=== PATIENT | female | born 1955 | race Caucasian/White ===

== ENCOUNTER 2017-04-08 20:07 | Observation (INO) ==
--- NOTE | 2017-04-08 21:03 | Emergency Department Note ---
Disposition Clinical Impression: UTI (urinary tract infection), Gastroenteritis, Dehydration Disposition: Admitted As Inpatient Condition: Good Time of Disposition: 23:22 ([facility]) Nausea/Vomiting/Diarrhea HPI - General Chief complaint: ED Nausea/Vomiting/Diarrhea Stated complaint: V/N/D for 10 days Time Seen by Provider: 04/08/17 20:15 Source: patient, family Mode of arrival: ambulatory Limitations: no limitations Nursing Notes Reviewed: Yes Vital Signs Reviewed: Yes - History of Present Illness HPI Narrative: 10 day history of nausea vomiting and diarrhea intermittently occurring has it for 1 day will be better than it recur she has seen her family physician who told her it sounds like it is gastroenteritis that should last 7-10 days that was 3 days ago she denies a fever chills she had blood work done states that she did not receive a call that was abnormal patient states that she is having heavy cramping she denies any blurred vision double vision neck pain neck stiffness is having nausea vomiting diarrhea but that is more like a sludgy- type stool she has had abdominal surgery but has never had a history of obstruction she denies any vaginal discharge difficulty urinating she denies any rashes or lesions she did start a new medication Imuran is not sure if this may be the source for it as result she is here she is also complaining of dysuria at this time when she goes to the bathroom here at the hospital No other family members ill Pt Subjective Complaint: nausea, vomiting, diarrhea Onset (ago): week(s) (1.5) Description of emesis: food contents Description of Diarrhea: water Associated Abdominal Pain: Yes If pain, Location of pain: diffuse Severity: moderate Severity scale (1-10): 4 Quality: cramping Consistency: intermittent Improves with: nothing Worsens with: nonthing Context: other (new medication imuran) Associated symptoms: Reports: headaches, loss of appetite, nausea/vomiting. Denies: myalgias, chest pain, cough, diaphoresis, fever/chills, malaise, dysuria , shortness of breath, syncope, weakness - Related Data Home Medications Medication Instructions Recorded Confirmed Fesoterodine Fumarate [Toviaz] 4 mg PO DAILY 03/22/15 04/08/17 Gabapentin [Neurontin] 600 mg PO HS 03/22/15 04/08/17 Trazodone HCl [TraZODone] 100 mg PO HS 03/22/15 04/08/17 rOPINIRole [Requip] 1 mg PO TID 03/22/15 04/08/17 Levothyroxine [Synthroid] 25 mcg PO DAILY 06/05/15 04/08/17 Bupropion HCl [Wellbutrin Xl] 300 mg PO QAM 03/17/16 04/08/17 metFORMIN [Glucophage] 500 mg PO BID 05/31/16 04/08/17 Carbidopa/Levodopa 1 tab PO HS 08/21/16 04/08/17 [Carbidopa-Levodopa 25-100 Tab] Celecoxib 400 mg PO DAILY 08/21/16 04/08/17 Esomeprazole Magnesium 40 mg PO DAILY 08/21/16 04/08/17 Rosuvastatin Calcium 10 mg PO DAILY 08/21/16 04/08/17 DULoxetine [Cymbalta] 30 mg PO BID 04/08/17 04/08/17 HYDROcodone/Acet 10/325 mg [[place] 1 tab PO BID PRN 04/08/17 04/08/17 10-325 mg] Linaclotide [Linzess] 145 mcg PO DAILY 04/08/17 04/08/17 Montelukast [Singulair] 10 mg PO HS 04/08/17 04/08/17 Ondansetron HCl [Zofran] 4 mg PO Q8H PRN 04/08/17 04/08/17 Phenazopyridine HCl [Pyridium] 200 mg PO TIDAC 04/08/17 04/08/17 diazePAM [Valium] 2 mg PO DAILY 04/08/17 04/08/17 Allergies Allergy/AdvReac Type Severity Reaction Status Date / Time leflunomide Allergy Rash Verified 04/08/17 20:33 Hydromorphone [From Dilaudid] AdvReac See Verified 04/08/17 20:33 Comments levofloxacin [From Levaquin] AdvReac Muscle Pain Verified 04/08/17 20:33 nitrofurantoin AdvReac Nausea Verified 04/08/17 20:33 [From Macrobid] All systems ED: reviewed and negative except as stated. Review of Systems: As Per HPI Constitutional: Denies: fever, chills, weakness Eyes: Denies: eye pain, eye discharge ENT ED: Denies: ear pain Cardiovascular: Denies: chest pain Respiratory: Denies: cough, dyspnea Gastrointestinal: Reports: abdominal pain, nausea, vomiting, diarrhea Genitourinary: Reports: urgency, frequency. Denies: dysuria Musculoskeletal: Denies: back pain Integumentary: Denies: rash, abrasion Neurological: Denies: headache Psychiatric: Denies: anxiety Endocrine: Denies: fatigue Hematological/Lymphatic: Denies: easy bleeding Allergic/Immunologic: Denies: facial swelling Past Medical History - Past Medical History Attestation: Yes The following information was validated with the patient. Source: patient, old records reviewed, nursing notes reviewed Medical history: Reports: diabetes, fibromyalgia, hyperlipidemia, hypertension, RA, thyroid disease Surgical history: Reports: cholecystectomy, hysterectomy Psychiatric history: Reports: anxiety, depression CODING TECH history: Reports: non-contributory - Social History Smoking Status: Former smoker Smokeless Tobacco Status: No Alcohol use: Reports: none Drug use: Reports: none Physical Exam - General Limitations: no limitations General appearance: alert, in no apparent distress, anxious - Head Head exam: atraumatic, normocephalic, normal inspection - Eye Eye exam: Present: normal appearance, PERRL, EOMI - ENT ENT exam: normal exam, normal oropharynx, mucous membranes moist, normal external ear exam - Neck Neck exam: Present: normal inspection, full ROM, trachea midline - Chest Chest inspection: Present: normal inspection, symmetric chest wall rise - Respiratory Respiratory exam: Present: normal lung sounds bilaterally - Cardiovascular Cardiovascular exam: Present: regular rate, normal rhythm, normal heart sounds - Abdominal Exam Abdominal exam: Present: soft, tenderness, distention, hyperactive bowel sounds. Absent: mass, pulsatile mass - Extremities Exam Extremities exam: Present: normal inspection, full ROM, normal capillary refill. Absent: tenderness, pedal edema, joint swelling, calf tenderness - Expanded Lower Extremity Exam Neurovascular/Tendon exam: Present: normal capillary refill, normal fine/light touch Gait: observed and normal - Back Exam Back exam: Present: normal inspection, full ROM. Absent: muscle spasm - Neurological Exam Neurological exam: Present: alert, oriented X3, CN II-XII intact - Psychiatric Psychiatric exam: Present: normal affect, normal mood - Skin Skin exam: Present: warm, dry, intact, normal color Course Course Narrative: 62-year-old female with nausea vomiting diarrhea she is alert she is up she has had no diarrhea episodes while here in the emergency room she has urinated without difficulty patient though appears to be somewhat uncomfortable she is given an antirheumatic the patient was then given IV fluids with the results of the urine is admitted her overnight to make sure that she was not developing any other etiology discharged home stable condition Vital Signs Temperature 96.8 F L 04/08/17 20:08 Pulse Rate 106 04/08/17 20:08 Respiratory Rate 18 04/08/17 20:08 Blood Pressure 121/66 04/08/17 20:08 O2 Sat by Pulse Oximetry 97 04/08/17 20:08 Temperature 97.7 F 04/10/17 06:44 Pulse Rate 67 04/10/17 06:44 Respiratory Rate 18 04/10/17 06:44 Blood Pressure 79/44 04/10/17 06:44 O2 Sat by Pulse Oximetry 95 04/10/17 06:44 Oxygen Delivery Oxygen Delivery Room Air Nausea/Vomiting/Diarrhea - Differential Diagnosis Likely: traveler's diarrhea, gastroenteritis, clostridium difficile infection, drug-induced nausea and vomitting, dehydration - Medical Records Medical records reviewed: Yes I reviewed the patient's medical records. - Lab Data Lab results reviewed: Yes I reviewed the patient's lab results. Result diagrams: 04/10/17 06:11 04/10/17 06:11 Lab Results 04/08/17 04/08/17 04/08/17 Range/Units 21:00 21:15 21:15 WBC 11.6 H (4.3-11.1) K/mcL RBC 4.63 (3.82-4.97) M/mcL Hgb 14.4 D (11.5-15.4) g/dL Hct 42.8 (35.3-44.9) % MCV 92.4 (83.0-100.0) fL MCH 31.1 (28.0-33.3) pg MCHC 33.6 (31.6-35.5) g/dL RDW 12.8 (11.5-14.5) % Plt Count 248 (140-400) K/mcL MPV 9.8 (9.4-12.4) fL Immature Gran % 0.3 (0-4) % Seg Neutrophils % 72.0 % Lymphocytes % 19.4 % Monocytes % 7.4 % Eosinophils % 0.6 % Basophils % 0.3 % Neutrophils # 8.4 (1.6-8.9) K/mcL Lymphocytes # 2.3 (0.6-4.6) K/mcL Monocytes # 0.9 (0.0-1.3) K/mcL Eosinophils # 0.1 (0.0-0.6) K/mcL Basophils # 0.0 (0.0-0.2) K/mcL PT 12.1 (9.4-12.1) Seconds INR 1.1 APTT 31.3 (26.0-36.0) Seconds Sodium (136-145) mEq/L Potassium (3.5-4.5) mEq/L Chloride (98-109) mEq/L Carbon Dioxide (19-29) mEq/L BUN (7-20) mg/dL Creatinine (0.57-1.11) mg/dL Est GFR ( Amer) (> 60) Est GFR (Non-Af Amer) (> 60) BUN/Creatinine Ratio (6-26) Glucose (70-99) mg/dL Calculated Osmolality (280-300) Calcium (8.6-10.8) mg/dL Total Bilirubin (0.2-1.2) mg/dL AST (5-34) Units/L ALT (0-55) Units/L Alkaline Phosphatase (38-126) Units/L Serum Total Protein (6.0-8.3) g/dL Albumin (3.5-5.0) g/dL Globulin (2.4-3.5) g/dL Albumin/Globulin Ratio (1.1-2.2) Lipase (8-78) Units/L Urine Color Yellow (Yellow) Urine Clarity Clear (Clear) Urine pH 5.5 (5.0-8.0) pH Units Ur Specific [place] >= 1.030 H (1.010-1.025) Urine Protein Trace (Neg-Trace) mg/dL Urine Glucose (UA) 100 H (Normal) mg/dL Urine Ketones Negative (Negative) mg/dL Urine Blood Small H (Negative) Urine Nitrite Positive A (Negative) Urine Bilirubin Negative (Negative) Urine Urobilinogen Normal (Normal) mg/dL Ur Leukocyte Esterase Trace H (Negative) Urine Microscopic RBC 5-15 H (0-3) per hpf Urine Microscopic WBC Test Not Performed Ur Squamous Epith Cells Few (None-Few) per lpf Urine Mucus Moderate H (Few) Ur Culture Indicated? YES A (NO) 04/08/17 Range/Units 21:15 WBC (4.3-11.1) K/mcL RBC (3.82-4.97) M/mcL Hgb (11.5-15.4) g/dL Hct (35.3-44.9) % MCV (83.0-100.0) fL MCH (28.0-33.3) pg MCHC (31.6-35.5) g/dL RDW (11.5-14.5) % Plt Count (140-400) K/mcL MPV (9.4-12.4) fL Immature Gran % (0-4) % Seg Neutrophils % % Lymphocytes % % Monocytes % % Eosinophils % % Basophils % % Neutrophils # (1.6-8.9) K/mcL Lymphocytes # (0.6-4.6) K/mcL Monocytes # (0.0-1.3) K/mcL Eosinophils # (0.0-0.6) K/mcL Basophils # (0.0-0.2) K/mcL PT (9.4-12.1) Seconds INR APTT (26.0-36.0) Seconds Sodium 143 (136-145) mEq/L Potassium 3.6 (3.5-4.5) mEq/L Chloride 104 (98-109) mEq/L Carbon Dioxide 26 (19-29) mEq/L BUN 20 (7-20) mg/dL Creatinine 0.77 (0.57-1.11) mg/dL Est GFR ( Amer) > 60 (> 60) Est GFR (Non-Af Amer) > 60 (> 60) BUN/Creatinine Ratio 26 (6-26) Glucose 112 H (70-99) mg/dL Calculated Osmolality 299 (280-300) Calcium 9.2 D (8.6-10.8) mg/dL Total Bilirubin 0.2 (0.2-1.2) mg/dL AST 22 (5-34) Units/L ALT 36 (0-55) Units/L Alkaline Phosphatase 76 (38-126) Units/L Serum Total Protein 6.5 (6.0-8.3) g/dL Albumin 3.6 (3.5-5.0) g/dL Globulin 2.9 (2.4-3.5) g/dL Albumin/Globulin Ratio 1.2 (1.1-2.2) Lipase 36 (8-78) Units/L Urine Color (Yellow) Urine Clarity (Clear) Urine pH (5.0-8.0) pH Units Ur Specific [place] (1.010-1.025) Urine Protein (Neg-Trace) mg/dL Urine Glucose (UA) (Normal) mg/dL Urine Ketones (Negative) mg/dL Urine Blood (Negative) Urine Nitrite (Negative) Urine Bilirubin (Negative) Urine Urobilinogen (Normal) mg/dL Ur Leukocyte Esterase (Negative) Urine Microscopic RBC (0-3) per hpf Urine Microscopic WBC Ur Squamous Epith Cells (None-Few) per lpf Urine Mucus (Few) Ur Culture Indicated? (NO) - Radiology Data Radiology results reviewed: Yes I reviewed the patient's radiology results. ITS Impressions Abdomen/Pelvis CT 04/08/17 21:03 IMPRESSION: No acute process D/ / Min Miller MD / Min Miller MD Interpreting Provider: Min Miller MD - EKG Data EKG attestation: Yes I reviewed and interpreted this EKG. EKG results narrative: Sinus rhythm with right ventricular conduction delay rate 95 ID 158. 99 QT 356 excess -8 Critical Care Time Critical Care Time: No
[2017-04-08 21:07] LABS: Bilirubin,Urine Negative (Negative); Blood,Urine Small (Negative); Clarity,Urine Clear (Clear); Color,Urine Yellow (Yellow); Glucose,Urine (UA) 100 mg/dL (Normal); Ketones,Urine Negative (Negative); Leukocyte Esterase,Urine Trace (Negative); Nitrite,Urine Positive (Negative); PH,Urine 5.5 pH Units (5.0-8.0); Protein,Urine Trace mg/dL (Neg-Trace); Specific Gravity,Urine >= 1.030 (1.010-1.025); Urobilinogen,Urine Normal (Normal)
[2017-04-08 21:13] LABS: Mucus,Urine Moderate (Few); Squamous Epithelial Cell,Urine Few per lpf (None-Few)
[2017-04-08 21:21] LABS: Basophils % 0.3 %; Eosinophils # 0.1 K/mcL (0.0-0.6); Eosinophils % 0.6 %; Hematocrit 42.8 % (35.3-44.9); Hemoglobin 14.4 g/dL (11.5-15.4); Immature Granulocytes % 0.3 % (0-4); Lymphocytes # 2.3 K/mcL (0.6-4.6); Lymphocytes % 19.4 %; Mean Corpuscular HGB Conc 33.6 g/dL (31.6-35.5); Mean Corpuscular Hemoglobin 31.1 pg (28.0-33.3); Mean Corpuscular Volume 92.4 fL (83.0-100.0); Mean Platelet Volume 9.8 fL (9.4-12.4); Monocytes # 0.9 K/mcL (0.0-1.3); Monocytes % 7.4 %; Neutrophils # 8.4 K/mcL (1.6-8.9); Platelet Count 248 K/mcL (140-400); Red Blood Count 4.63 M/mcL (3.82-4.97); Red Cell Distribution Width 12.8 % (11.5-14.5)
[2017-04-08 21:26] LABS: INR 1.1; Prothrombin Time 12.1 Seconds (9.4-12.1)
[2017-04-08 21:29] LABS: Activated Partial Thrombo Time 31.3 Seconds (26.0-36.0)
[2017-04-08 21:39] LABS: Alanine Aminotransferase 36 Units/L (0-55); Albumin 3.6 g/dL (3.5-5.0); Albumin/Globulin Ratio 1.2 (1.1-2.2); Alkaline Phosphatase 76 Units/L (38-126); Aspartate Amino Transferase 22 Units/L (5-34); BUN/Creatinine Ratio 26 (6-26); Bilirubin,Total 0.2 mg/dL (0.2-1.2); Blood Urea Nitrogen 20 mg/dL (7-20); Calcium 9.2 mg/dL (8.6-10.8); Carbon Dioxide 26 mEq/L (19-29); Chloride 104 mEq/L (98-109); Globulin 2.9 g/dL (2.4-3.5); Glucose 112 mg/dL (70-99); Lipase 36 Units/L (8-78); Osmolality,Calculated 299 (280-300); Potassium 3.6 mEq/L (3.5-4.5); Sodium 143 mEq/L (136-145); Total Protein 6.5 g/dL (6.0-8.3); eGFR For African Americans > 60 (> 60); eGFR For Non-African Americans > 60 (> 60)
[2017-04-08] MEDS ORDERED: MetroNIDAZOLE 500 MG/100 ML 500 MG/100 ML BAG IVPB ONE (21:39)
[2017-04-08] MEDS ORDERED: 0.9 % Sodium Chloride 1,000 ML IVC ONE (21:44)
[2017-04-08] MEDS ORDERED: Ondansetron 4 MG/2 ML VIAL IVP ONE (23:14)
[2017-04-08] MEDS ORDERED: *HR* HYDROcodone/Acet 10/325 mg TABLET PO PRN (23:31)
[2017-04-08] MEDS ORDERED: *HR* Dextrose 50 % in Water (Syg) 50 ML SYRINGE IVP PRN (23:31)
[2017-04-08] MEDS ORDERED: Dextrose Gel 15 GM PO PRN ×2 (23:31)
[2017-04-08] MEDS ORDERED: Ondansetron 4 MG/2 ML VIAL IVP PRN (23:31)
[2017-04-08] MEDS ORDERED: D5% in Water 1,000 ML IVC PRN (23:31)
[2017-04-08] MEDS ORDERED: Naloxone 0.4 MG/ML INJ IVP PRN (23:31)
[2017-04-09] MEDS: Gabapentin 300 MG CAPSULE PO SCH ×2 (00:31→20:43)
[2017-04-09] MEDS: traZODone 50 MG TABLET PO SCH ×2 (00:31→20:44)
[2017-04-09] MEDS: rOPINIRole 1 MG TABLET PO SCH ×4 (00:31→20:43)
[2017-04-09 06:14] LABS: Basophils % 0.4 %; Eosinophils # 0.1 K/mcL (0.0-0.6); Eosinophils % 1.1 %; Hematocrit 37.8 % (35.3-44.9); Hemoglobin 12.6 g/dL (11.5-15.4); Immature Granulocytes % 0.4 % (0-4); Lymphocytes # 1.6 K/mcL (0.6-4.6); Lymphocytes % 18.7 %; Mean Corpuscular HGB Conc 33.3 g/dL (31.6-35.5); Mean Corpuscular Volume 93.1 fL (83.0-100.0); Mean Platelet Volume 10.3 fL (9.4-12.4); Monocytes # 0.6 K/mcL (0.0-1.3); Monocytes % 7.4 %; Neutrophils # 6.1 K/mcL (1.6-8.9); Platelet Count 220 K/mcL (140-400); Red Blood Count 4.06 M/mcL (3.82-4.97); Red Cell Distribution Width 12.7 % (11.5-14.5)
[2017-04-09] MEDS: Levothyroxine 25 MCG TABLET PO SCH (06:27)
[2017-04-09 06:38] LABS: INR 1.1; Prothrombin Time 12.3 Seconds (9.4-12.1)
[2017-04-09 06:41] LABS: Activated Partial Thrombo Time 29.1 Seconds (26.0-36.0)
[2017-04-09 07:09] LABS: BUN/Creatinine Ratio 21 (6-26); Blood Urea Nitrogen 15 mg/dL (7-20); Calcium 8.6 mg/dL (8.6-10.8); Carbon Dioxide 26 mEq/L (19-29); Chloride 107 mEq/L (98-109); Glucose 112 mg/dL (70-99); Osmolality,Calculated 300 (280-300); Potassium 3.2 mEq/L (3.5-4.5); Sodium 144 mEq/L (136-145); eGFR For African Americans > 60 (> 60); eGFR For Non-African Americans > 60 (> 60)
[2017-04-09] MEDS: BuPROPion XL (24 HR) 150 MG TABLET PO SCH (08:05)
[2017-04-09] MEDS: Celecoxib 100 MG CAPSULE PO SCH (08:05)
[2017-04-09] MEDS: diazePAM 2 MG TABLET PO SCH (08:06)
[2017-04-09] MEDS: *HR* Metformin 500 MG TABLET PO SCH ×2 (08:06→16:01)
[2017-04-09] MEDS ORDERED: rOPINIRole 1 MG TABLET PO SCH (09:00)
[2017-04-09] MEDS: Insulin LISPRO 300 UNITS/3 ML VIAL SQ SCH ×3 (09:39→18:55)
[2017-04-09] MEDS: Linaclotide (Linzess) 145 MCG PO SCH (09:39)
--- NOTE | 2017-04-09 12:28 | Internal Med History&Physical ---
Date of Encounter: 04/09/17 Time of Encounter: 11:55 Assessment and Plan (1) Gastroenteritis Current visit: Yes Status: Acute She is been started on IV fluids and antiemetics when necessary. Will recheck labs in a.m. (2) Hypokalemia Current visit: Yes Status: Acute Potassium decreased today to 3.2. Will give IV fluids with supplemental potassium and recheck labs in a.m. (3) Hyperglycemia Current visit: Yes Status: Acute [place] globin A1c was 6.4% on 11/11/2016. Will recheck Internal Medicine - H&P: HPI Chief complaint: Vomiting and diarrhea Admitted From: Home Plans for Post Hospital Care: Home History of present illness: Ms. Pimentel is a 62 year old female who came to emergency room stating she had 10 day history of vomiting and diarrhea. She reports over 20 episodes of vomiting and diarrhea without obvious melena, hematochezia, or hematemesis. She denies fevers or family members similarly affected. She has left upper quadrant abdominal pain and complains of gas. She was evaluated in emergency room and admitted to [facility] floor for ongoing care needs. She states she has not vomited since coming to emergency room. She tolerated breakfast without vomiting. She had pancreatitis several years ago that was felt to be due to use of [place]. She had no recurrence after discontinuation of medication. She has had intermittent elevations of LFTs. She has had cholecystectomy. She states she was started on azathioprine approximately 2 months ago by a [facility] fastener technologist as treatment for rheumatoid arthritis. She also uses Celebrex for arthritis. Past Med Surg Social Fam HX - Past Medical History Medical history: diabetes, fibromyalgia, hyperlipidemia, hypertension, RA, thyroid disease Psychiatric history: anxiety, depression - Past Surgical History Surgical History: cholecystectomy, hysterectomy - Social History Smoking Status: Former smoker Smokeless Tobacco Status: No Alcohol use: none Drug use: none Internal Medicine - H&P: Meds Fesoterodine Fumarate [Toviaz] 4 mg PO DAILY 03/22/15 [History] Gabapentin [Neurontin] 600 mg PO HS 03/22/15 [History] Lisinopril/Hydrochlorothiazide [Lisinopril-Hctz 20-25 mg Tab] 1 tab PO DAILY 01/29 [History] Trazodone HCl [TraZODone] 100 mg PO HS 03/22/15 [History] rOPINIRole [Requip] 1 mg PO TID 03/22/15 [History] Levothyroxine [Synthroid] 25 mcg PO DAILY 06/05/15 [History] Bupropion HCl [Wellbutrin Xl] 300 mg PO QAM 03/17/16 [History] metFORMIN [Glucophage] 500 mg PO BID 05/31/16 [History] Carbidopa/Levodopa [Carbidopa-Levodopa 25-100 Tab] 1 tab PO HS 08/21/16 [History ] Celecoxib 400 mg PO DAILY 08/21/16 [History] Esomeprazole Magnesium 40 mg PO DAILY 08/21/16 [History] Rosuvastatin Calcium 10 mg PO DAILY 08/21/16 [History] Azathioprine [Imuran] 50 mg PO DAILY 04/08/17 [History] DULoxetine [Cymbalta] 30 mg PO BID 04/08/17 [History] HYDROcodone/Acet 10/325 mg [[place] 10-325 mg] 1 tab PO BID PRN 04/08/17 [History] Linaclotide [Linzess] 145 mcg PO DAILY 04/08/17 [History] Montelukast [Singulair] 10 mg PO HS 04/08/17 [History] Ondansetron HCl [Zofran] 4 mg PO Q8H PRN 04/08/17 [History] Phenazopyridine HCl [Pyridium] 200 mg PO TIDAC 04/08/17 [History] diazePAM [Valium] 2 mg PO DAILY 04/08/17 [History] 3 Allergy/AdvReac Type Severity Reaction Status Date / Time leflunomide Allergy Rash Verified 04/08/17 20:33 Hydromorphone [From Dilaudid] AdvReac See Verified 04/08/17 20:33 Comments levofloxacin [From Levaquin] AdvReac Muscle Pain Verified 04/08/17 20:33 nitrofurantoin AdvReac Nausea Verified 04/08/17 20:33 [From Macrobid] All Systems PM: A 10-system review of systems was performed and is negative for pertinent findings except as documented above in the HPI. Review of systems: Gen.: She states her weight is similar now to one year ago Cardiovascular: She has history of hypertension but denies [place] heart failure angina DVT or pulmonary embolus Respiratory: She smoked from age [age]. She has a diagnosis of asthma but denies other chronic lung disease GI: As per history of present illness : She has had frequent urinary tract infections for many years. She has been on multiple suppressive antibiotic regimens without success. She has history of overactive bladder. She denies other kidney or bladder disorders Neurologic: She has had migraine headaches. She denies large distribution strokes or seizures. Endocrine: She has hyperlipidemia and hypothyroidism denies diabetes Hematology/oncology: She had skin cancer but denies internal malignancies or anemia Psychiatric: She has anxiety and depression [place] skeletal: She has rheumatoid arthritis DJD and fibromyalgia. - Constitutional Vitals: Temp Pulse Resp BP Pulse Ox 97.4 F L 75 17 109/69 95 04/09/17 10:43 04/09/17 10:43 04/09/17 10:43 04/09/17 10:43 04/09/17 10:43 Exam: Gen.: She is a well-developed overweight female lying in bed who appears in minimal distress at present time HEENT: Head is atraumatic and normocephalic. Eyes: EOMI. There is no scleral icterus. Mouth: Mucosa is moist. Neck: Supple and nontender. There is no thyromegaly or adenopathy noted. Heart: Regular without murmurs gallops or ectopics Lungs: No wheezes or crackles are heard. Abdomen: Bowel sounds are present but diminished. There is mild tenderness to palpation in the left upper abdominal area. No masses or guarding noted. Extremities: There is no cyanosis edema or clubbing noted. Dorsalis pedis and posttibial pulses are 1-2 over 2 bilaterally. He has DJD changes of her hands. Neurologic: Mental status: She is talkative and a good historian. Cranial nerves: Smile is symmetric. Forehead wrinkles bilaterally. Tongue protrudes midline. EOMI. Motor: There is no pronator drift. Cerebellar: Fair to nose is intact bilaterally. Skin: Warm and dry Internal Med - H&P Results - Labs CBC & Chem 7: 04/09/17 05:47 04/09/17 05:47 Labs: Short CBC 04/09/17 Range/Units 05:47 WBC 8.4 (4.3-11.1) K/mcL Hgb 12.6 D (11.5-15.4) g/dL Hct 37.8 (35.3-44.9) % Plt Count 220 (140-400) K/mcL Neutrophils # 6.1 (1.6-8.9) K/mcL BMP 04/09/17 05:47 Sodium 144 Potassium 3.2 L Chloride 107 Carbon Dioxide 26 BUN 15 Creatinine 0.72 Glucose 112 H Calcium 8.6
[2017-04-09] MEDS: 0.45 % Sodium Chloride w/KCl 20 MEQ/1,000 ML MLS IVC SCH (13:38)
[2017-04-09] MEDS: Ondansetron 4 MG/2 ML VIAL IVP PRN ×2 (14:09→18:59)
[2017-04-09 17:08] LABS: Hemoglobin A1C 5.2 %
--- NOTE | 2017-04-09 18:10 | Electrocardiograph Report ---
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
[2017-04-09] MEDS ORDERED: Carbidopa/Levodopa 25/100 TABLET PO SCH (21:00)
[2017-04-09] MEDS ORDERED: traZODone 50 MG TABLET PO SCH (21:00)
[2017-04-09] MEDS ORDERED: Gabapentin 300 MG CAPSULE PO SCH (21:00)
[2017-04-10] MEDS: 0.45 % Sodium Chloride w/KCl 20 MEQ/1,000 ML MLS IVC SCH ×2 (00:09→08:51)
[2017-04-10] MEDS: Ondansetron 4 MG/2 ML VIAL IVP PRN ×2 (04:52→10:01)
[2017-04-10 06:26] LABS: Basophils # 0.1 K/mcL (0.0-0.2); Basophils % 0.8 %; Eosinophils # 0.2 K/mcL (0.0-0.6); Eosinophils % 2.6 %; Hematocrit 36.1 % (35.3-44.9); Hemoglobin 11.8 g/dL (11.5-15.4); Immature Granulocytes % 0.3 % (0-4); Lymphocytes % 29.6 %; Mean Corpuscular HGB Conc 32.7 g/dL (31.6-35.5); Mean Corpuscular Hemoglobin 30.8 pg (28.0-33.3); Mean Corpuscular Volume 94.3 fL (83.0-100.0); Mean Platelet Volume 10.3 fL (9.4-12.4); Monocytes # 0.5 K/mcL (0.0-1.3); Monocytes % 7.8 %; Neutrophils # 3.9 K/mcL (1.6-8.9); Platelet Count 192 K/mcL (140-400); Red Blood Count 3.83 M/mcL (3.82-4.97); Red Cell Distribution Width 12.7 % (11.5-14.5); Segmented Neutrophils % 58.9 %
[2017-04-10] MEDS: Levothyroxine 25 MCG TABLET PO SCH (06:36)
[2017-04-10 06:42] LABS: BUN/Creatinine Ratio 16 (6-26); Blood Urea Nitrogen 12 mg/dL (7-20); Carbon Dioxide 26 mEq/L (19-29); Chloride 107 mEq/L (98-109); Glucose 125 mg/dL (70-99); Osmolality,Calculated 297 (280-300); Potassium 4.1 mEq/L (3.5-4.5); Sodium 143 mEq/L (136-145); eGFR For African Americans > 60 (> 60); eGFR For Non-African Americans > 60 (> 60)
[2017-04-10 06:48] VITALS: BP 79/44
[2017-04-10] MEDS: rOPINIRole 1 MG TABLET PO SCH (07:44)
[2017-04-10] MEDS: diazePAM 2 MG TABLET PO SCH (07:45)
[2017-04-10] MEDS: *HR* Metformin 500 MG TABLET PO SCH (07:45)
[2017-04-10] MEDS: Celecoxib 100 MG CAPSULE PO SCH (07:45)
[2017-04-10] MEDS: BuPROPion XL (24 HR) 150 MG TABLET PO SCH (07:45)
[2017-04-10] MEDS: Insulin LISPRO 300 UNITS/3 ML VIAL SQ SCH (07:45)
[2017-04-10] MEDS: Linaclotide (Linzess) 145 MCG PO SCH (07:48)
--- NOTE | 2017-04-10 09:18 | Discharge Summary ---
Date of Encounter: 04/10/17 Time of Encounter: 09:10 - Discharge Diagnosis (1) Gastroenteritis Priority: Primary Status: Acute (2) Hypokalemia Priority: Secondary Status: Resolved (3) Hyperglycemia Priority: Secondary Status: Acute - Discharge Medications Home Medications: Fesoterodine Fumarate [Toviaz] 4 mg PO DAILY 03/22/15 [History] Gabapentin [Neurontin] 600 mg PO HS 03/22/15 [History] Trazodone HCl [TraZODone] 100 mg PO HS 03/22/15 [History] rOPINIRole [Requip] 1 mg PO TID 03/22/15 [History] Levothyroxine [Synthroid] 25 mcg PO DAILY 06/05/15 [History] Bupropion HCl [Wellbutrin Xl] 300 mg PO QAM 03/17/16 [History] metFORMIN [Glucophage] 500 mg PO BID 05/31/16 [History] Carbidopa/Levodopa [Carbidopa-Levodopa 25-100 Tab] 1 tab PO HS 08/21/16 [History ] Celecoxib 400 mg PO DAILY 08/21/16 [History] Esomeprazole Magnesium 40 mg PO DAILY 08/21/16 [History] Rosuvastatin Calcium 10 mg PO DAILY 08/21/16 [History] DULoxetine [Cymbalta] 30 mg PO BID 04/08/17 [History] HYDROcodone/Acet 10/325 mg [[place] 10-325 mg] 1 tab PO BID PRN 04/08/17 [History] Linaclotide [Linzess] 145 mcg PO DAILY 04/08/17 [History] Montelukast [Singulair] 10 mg PO HS 04/08/17 [History] Ondansetron HCl [Zofran] 4 mg PO Q8H PRN 04/08/17 [History] Phenazopyridine HCl [Pyridium] 200 mg PO TIDAC 04/08/17 [History] diazePAM [Valium] 2 mg PO DAILY 04/08/17 [History] Allergies/Adverse Reactions: 3 Allergy/AdvReac Type Severity Reaction Status Date / Time leflunomide Allergy Rash Verified 04/08/17 20:33 Hydromorphone [From Dilaudid] AdvReac See Verified 04/08/17 20:33 Comments levofloxacin [From Levaquin] AdvReac Muscle Pain Verified 04/08/17 20:33 nitrofurantoin AdvReac Nausea Verified 04/08/17 20:33 [From Macrobid] Date of admission: 04/08/17 23:23 Primary care physician: Puneet Emerson MD - Patient Status Disposition: Home, Self-Care Condition: Good Functional capacity at discharge: independent ambulation Overall status at discharge: patient is progressing back to baseline - Discharge Instructions Follow Up With: Puneet Emerson MD [Primary Care Provider] - 1 week - Diet and Activity Activity: resume usual activities as tolerated Diet: advance to your usual diet Hospital course: Ms. Pimentel is a 62 year old female who came to emergency room stating she had 10 day history of vomiting and diarrhea. She reports over 20 episodes of vomiting and diarrhea without obvious melena, hematochezia, or hematemesis. She denies fevers or family members similarly affected. She has left upper quadrant abdominal pain and complains of gas. She was evaluated in emergency room and admitted to [facility] floor for ongoing care needs. Initial orders were written by the emergency room physician. I saw her on April 09 and performed a history and physical. She was given IV fluids and antiemetics when necessary. Her vomiting and diarrhea resolved. She had minimal nausea on the day of discharge. She tolerated adequate amounts of food and fluid intake. Supplemental potassium was given and potassium normalized to 4.1 on the day of discharge. Lisinopril/HCTZ was discontinued. Blood pressure remained borderline low and this will remain discontinued at discharge. Hemoglobin A1c was ordered with results pending at time of this dictation. On April 10 she felt stable for discharge home. She will remain off azathioprine for several days and then restart it and see if symptoms recur. She will remain off lisinopril/HCTZ as per above. She will follow with her PCP Dr. Emerson within 1 week. - Time Spent with Patient Total time spent providing and/or coordinating discharge services: - Constitutional Vitals: Temp Pulse Resp BP Pulse Ox 97.7 F 67 18 79/44 95 04/10/17 06:44 04/10/17 06:44 04/10/17 06:44 04/10/17 06:44 04/10/17 06:44
== END 2017-04-10 10:25 | disposition home or self-care (01) ==
LOC: EMEROOPIK 20:07 → INPPIK 20:07
PROVIDERS: ADMIT Internal Medicine; ATTEND Internal Medicine

== ENCOUNTER 2019-03-12 19:19 | Observation (INO) ==
[2019-03-12] MEDS ORDERED: 0.9 % Sodium Chloride 1,000 ML IVC ONE (20:08)
--- NOTE | 2019-03-12 20:12 | Emergency Department Note ---
Disposition Clinical Impression: Syncope due to orthostatic hypotension, UTI (urinary tract infection) Disposition: Admitted As Inpatient Condition: Good Referrals: Brian Stratton DO [Primary Care Provider] - Forms: ED Satisfaction Letter Time of Disposition: 22:21 Syncope HPI - General Chief Complaint: ED Syncope Stated Complaint: SYNCOPAL EPISODE Time Seen by Provider: 03/12/19 20:04 Source: patient, EMS Mode of arrival: ambulatory Limitations: no limitations Nursing Notes Reviewed: Yes Vital Signs Reviewed: Yes - History of Present Illness HPI Narrative: 63-year-old female who presents emergency room stepping up onto a chair when she had lightheaded dizzy passed out woke up on the ground on her back approximately 2 feet from a chair on her backside she has an abrasion to her right knee was unable to get up brought in by EMS patient's cleaning a headache neck pain pelvic pain and right knee pain. She denies any blurred vision double vision loss vision she denies diarrhea melena hematochezia hematemesis she denies any cough cold of flulike symptoms. She denies prior history of syncope she denies a chest pain chest pressure palpitations associated with it she denies any additional complaints she said she felt fine before the event she denies any recent changes in her medications also have been reviewed and are otherwise negative denies numbness tingling weakness or loss of sensation patient states the pain in her neck and pelvic area is a 3-4 out of 10 all systems reviewed and are otherwise negative pain with activity eases with rest Pt Subjective Complaint: collapsed Onset (ago): Just PRESSER COTTON GINNING (standing on chair fall) Number of episodes: 1 Duration: second(s) Prodromal Symptoms: lightheaded Witnessed: no Context: during exertion, other (standing on chair) Injuries Sustained Associated with Event: neck Current Symptoms: lightheaded Treatments prior to arrival: IV fluids Associated trauma secondary to event: Yes - Related Data Home Medications Medication Instructions Recorded Confirmed Gabapentin [Neurontin] 600 mg PO BID 03/22/15 03/12/19 rOPINIRole [Requip] 2 mg PO HS 03/22/15 03/12/19 Lisinopril/Hydrochlorothiazide 1 tab PO DAILY 07/20/17 03/12/19 [Zestoretic 20-25 mg Tablet] DULoxetine [Cymbalta] 30 mg PO HS 03/27/18 03/12/19 DULoxetine [Cymbalta] 60 mg PO DAILY 03/27/18 03/12/19 Pentosan Polysulfate Sodium 100 mg PO TID 03/28/18 03/12/19 [Elmiron] Levothyroxine [Synthroid] 25 mcg PO 0605/03/18 03/12/19 Mirabegron [Myrbetriq] 25 mg PO DAILY 05/03/18 03/12/19 Rosuvastatin Calcium [Crestor] 10 mg PO DAILY 05/03/18 03/12/19 Linaclotide [Linzess] 145 mcg PO DAILY 01/26/19 03/12/19 Metformin HCl [Glucophage] 1,000 mg PO BID 01/26/19 03/12/19 Sulfasalazine [Azulfidine] 500 mg PO BID 01/26/19 03/12/19 Previous Rx's Medication Instructions Recorded Phenazopyridine HCl [Pyridium] 200 mg PO TIDAC #6 tab 10/19/18 Ondansetron ODT [Zofran ODT] 4 mg SL Q6HR #10 tab.rapdis 10/26/18 Allergies Allergy/AdvReac Type Severity Reaction Status Date / Time Hydroxychloroquine AdvReac Hives Verified 03/12/19 19:23 [From Plaquenil] All systems ED: reviewed and negative except as stated. Review of Systems: As Per HPI Constitutional: Denies: fever, chills, weakness, weight change Eyes: Denies: eye discharge, vision change ENT ED: Denies: ear pain, throat pain, dental pain Cardiovascular: Denies: chest pain, palpitations, dyspnea on exertion Respiratory: Denies: cough, dyspnea, wheezes Gastrointestinal: Denies: abdominal pain, nausea, vomiting Genitourinary: Denies: urgency, dysuria, frequency Musculoskeletal: Reports: back pain, neck pain, other (knee pain) Integumentary: Denies: rash, abrasion, lesions Neurological: Reports: headache, other (syncope). Denies: weakness, numbness Psychiatric: Denies: anxiety, depression, suicidal thoughts Endocrine: Denies: fatigue, heat or cold intolerance Hematological/Lymphatic: Denies: easy bleeding, easy bruising Allergic/Immunologic: Denies: facial swelling, urticaria Past Medical History - Past Medical History Attestation: Yes The following information was validated with the patient. 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 - Social History Smoking Status: Never smoker Smokeless Tobacco Status: No Alcohol use: Reports: none Drug use: Reports: none Physical Exam - General Limitations: no limitations General appearance: alert, in no apparent distress, anxious - Head Head exam: atraumatic, normocephalic - Eye Eye exam: Present: normal appearance, PERRL, EOMI - ENT ENT exam: normal exam, normal oropharynx, mucous membranes moist, TM's normal bilaterally, normal external ear exam - Neck Neck exam: Present: normal inspection, full ROM, trachea midline - Chest Chest inspection: Present: normal inspection, symmetric chest wall rise - Respiratory Respiratory exam: Present: normal lung sounds bilaterally - Cardiovascular Cardiovascular exam: Present: regular rate, normal rhythm, normal heart sounds - Abdominal Exam Abdominal exam: Present: soft, Non-Tender, normal bowel sounds. Absent: mass, pulsatile mass - Expanded Upper Extremity Exam Shoulder exam: Present: normal inspection, full ROM Arm exam: Present: normal inspection, full ROM Elbow exam: Present: normal inspection, full ROM Forearm/Wrist exam: Present: normal inspection, full ROM Hand exam: Present: normal inspection, full ROM Vascular exam: Normal: capillary refill, radial pulse - Expanded Lower Extremity Exam Hip/Pelvis exam: Present: normal inspection, full ROM Upper leg exam: Present: normal inspection, full ROM Knee exam: Present: normal inspection, full ROM Lower leg exam: Present: normal inspection, full ROM Ankle exam: Present: normal inspection, full ROM Foot/toe exam: Present: normal inspection, full ROM Neurovascular/Tendon exam: Present: normal capillary refill, normal fine/light touch. Absent: motor deficit, sensory deficit, tendon deficit Gait: observed and limited by pain - Back Exam Back exam: Present: normal inspection, full ROM, other (Pain palpation the posterior cervical region paraspinal fullness paraspinal fullness there is no crepitance there is no deformity noted and there is also pain within the pelvic region but no bruising or ecchymosis noted there is an abrasion noted to the right knee there is no swelling no edema) - Neurological Exam Neurological exam: Present: alert, oriented X3, CN II-XII intact, normal gait - Psychiatric Psychiatric exam: Present: normal affect, normal mood - Skin Skin exam: Present: warm, dry, intact, normal color Course Course Narrative: Patient was seen and evaluated examinations performed patient was transferred to [facility] laboratory data and x-rays were obtained patient did receive fluid bolus here in the ER she was feeling a little bit better patient be monitored overnight with serial enzymes Vital Signs Temperature 97.5 F L 03/12/19 19:28 Pulse Rate 94 03/12/19 19:28 Respiratory Rate 20 03/12/19 19:28 Blood Pressure 143/67 03/12/19 19:28 O2 Sat by Pulse Oximetry 95 03/12/19 19:28 Temperature 98.9 F 03/12/19 21:39 Pulse Rate 89 03/12/19 21:39 Respiratory Rate 20 03/12/19 21:39 Blood Pressure 145/74 03/12/19 21:39 O2 Sat by Pulse Oximetry 95 03/12/19 21:39 Oxygen Delivery Oxygen Delivery Room Air Syncope - Differential Diagnosis Likely: syncope due to orthostatic hypotension - Medical Records Medical records reviewed: Yes I reviewed the patient's medical records. - Lab Data Lab results reviewed: Yes I reviewed the patient's lab results. Result diagrams: 03/12/19 20:25 03/12/19 20:25 Lab Results 03/12/19 03/12/19 03/12/19 Range/Units 20:25 20:25 20:25 WBC 10.2 (4.3-11.1) K/mcL RBC 4.34 (3.82-4.97) M/mcL Hgb 13.7 (11.5-15.4) g/dL Hct 41.3 (35.3-44.9) % MCV 95.2 (83.0-100.0) fL MCH 31.6 (28.0-33.3) pg MCHC 33.2 (31.6-35.5) g/dL RDW 12.3 (11.5-14.5) % Plt Count 226 (140-400) K/mcL MPV 10.6 (9.4-12.4) fL Immature Gran % 0.3 (0-4) % Seg Neutrophils % 65.3 % Lymphocytes % 25.3 % Monocytes % 8.0 % Eosinophils % 0.6 % Basophils % 0.5 % Neutrophils # 6.6 (1.6-8.9) K/mcL Lymphocytes # 2.6 (0.6-4.6) K/mcL Monocytes # 0.8 (0.0-1.3) K/mcL Eosinophils # 0.1 (0.0-0.6) K/mcL Basophils # 0.1 (0.0-0.2) K/mcL PT 10.9 (9.4-12.1) Seconds INR 1.0 APTT 30.4 (26.0-36.0) Seconds Sodium 137 (136-145) mEq/L Potassium 3.2 L (3.5-5.1) mEq/L Chloride 99 (98-107) mEq/L Carbon Dioxide 30 H (23-29) mEq/L BUN 25 H (8-23) mg/dL Creatinine 0.71 (0.60-1.20) mg/dL Est GFR ( Amer) > 60 (> 60) Est GFR (Non-Af Amer) > 60 (> 60) BUN/Creatinine Ratio 35 H (6-26) Glucose 177 H (70-105) mg/dL Calculated Osmolality 293 (280-300) Calcium 9.2 (8.6-10.3) mg/dL Total Bilirubin 0.3 (0.3-1.0) mg/dL AST 16 (13-39) Units/L ALT 23 (7-52) Units/L Alkaline Phosphatase 45 (34-104) Units/L Troponin I < 0.03 (< 0.04) ng/mL Serum Total Protein 6.1 L (6.4-8.9) g/dL Albumin 4.0 (3.5-5.7) g/dL Globulin 2.1 L (2.4-3.5) g/dL Albumin/Globulin Ratio 1.9 (1.1-2.2) Urine Color (Yellow) Urine Clarity (Clear) Urine pH (5.0-8.0) pH Units Ur Specific [place] (1.010-1.025) Urine Protein (Neg-Trace) mg/dL Urine Glucose (UA) (Normal) mg/dL Urine Ketones (Negative) mg/dL Urine Blood (Negative) Urine Nitrite (Negative) Urine Bilirubin (Negative) Urine Urobilinogen (Normal) mg/dL Ur Leukocyte Esterase (Negative) Urine Microscopic RBC (0-3) per hpf Urine Microscopic WBC (0-3) per hpf Ur Squamous Epith Cells (None-Few) per lpf Calcium Oxalate Crystal Urine Bacteria (None-Few) per hpf Hyaline Casts (None-Few) per lpf Urine Mucus (Few) Urine Yeast (None Seen) per hpf Ur Culture Indicated? (NO) 03/12/19 Range/Units 20:38 WBC (4.3-11.1) K/mcL RBC (3.82-4.97) M/mcL Hgb (11.5-15.4) g/dL Hct (35.3-44.9) % MCV (83.0-100.0) fL MCH (28.0-33.3) pg MCHC (31.6-35.5) g/dL RDW (11.5-14.5) % Plt Count (140-400) K/mcL MPV (9.4-12.4) fL Immature Gran % (0-4) % Seg Neutrophils % % Lymphocytes % % Monocytes % % Eosinophils % % Basophils % % Neutrophils # (1.6-8.9) K/mcL Lymphocytes # (0.6-4.6) K/mcL Monocytes # (0.0-1.3) K/mcL Eosinophils # (0.0-0.6) K/mcL Basophils # (0.0-0.2) K/mcL PT (9.4-12.1) Seconds INR APTT (26.0-36.0) Seconds Sodium (136-145) mEq/L Potassium (3.5-5.1) mEq/L Chloride (98-107) mEq/L Carbon Dioxide (23-29) mEq/L BUN (8-23) mg/dL Creatinine (0.60-1.20) mg/dL Est GFR ( Amer) (> 60) Est GFR (Non-Af Amer) (> 60) BUN/Creatinine Ratio (6-26) Glucose (70-105) mg/dL Calculated Osmolality (280-300) Calcium (8.6-10.3) mg/dL Total Bilirubin (0.3-1.0) mg/dL AST (13-39) Units/L ALT (7-52) Units/L Alkaline Phosphatase (34-104) Units/L Troponin I (< 0.04) ng/mL Serum Total Protein (6.4-8.9) g/dL Albumin (3.5-5.7) g/dL Globulin (2.4-3.5) g/dL Albumin/Globulin Ratio (1.1-2.2) Urine Color Yellow (Yellow) Urine Clarity Cloudy A (Clear) Urine pH 6.0 (5.0-8.0) pH Units Ur Specific [place] 1.025 (1.010-1.025) Urine Protein Negative (Neg-Trace) mg/dL Urine Glucose (UA) Normal (Normal) mg/dL Urine Ketones Negative (Negative) mg/dL Urine Blood Negative (Negative) Urine Nitrite Negative (Negative) Urine Bilirubin Negative (Negative) Urine Urobilinogen Normal (Normal) mg/dL Ur Leukocyte Esterase Trace H (Negative) Urine Microscopic RBC 0-3 (0-3) per hpf Urine Microscopic WBC 5-15 H (0-3) per hpf Ur Squamous Epith Cells Moderate H (None-Few) per lpf Calcium Oxalate Crystal Present Urine Bacteria Moderate H (None-Few) per hpf Hyaline Casts Few (None-Few) per lpf Urine Mucus Many H (Few) Urine Yeast Many H (None Seen) per hpf Ur Culture Indicated? YES A (NO) - Radiology Data Radiology results reviewed: Yes I reviewed the patient's radiology results. ITS Impressions Cervical Spine CT 03/12/19 20:08 IMPRESSION: No acute abnormality of the cervical spine. D/ / Gennaro Eisenberg MD / Gennaro Eisenberg MD Interpreting Provider: Gennaro Eisenberg MD Chest X-Ray 03/12/19 20:08 IMPRESSION: No acute process. D/ / Martinez Pimentel MD / Martinez Pimentel MD Interpreting Provider: Martinez Pimentel MD Head CT 03/12/19 20:08 IMPRESSION: No acute intracranial abnormality. D/ / Gennaro Eisenberg MD / Gennaro Eisenberg MD Interpreting Provider: Gennaro Eisenberg MD Knee X-Ray 03/12/19 20:08 IMPRESSION: No significant finding in the right knee. D/ / Gennaro Eisenberg MD / Gennaro Eisenberg MD Interpreting Provider: Gennaro Eisenberg MD Pelvis CT 03/12/19 20:08 IMPRESSION: No acute finding in the pelvis. D/ / Gennaro Eisenberg MD / Gennaro Eisenberg MD Interpreting Provider: Gennaro Eisenberg MD - EKG Data EKG attestation: Yes I reviewed and interpreted this EKG. EKG results narrative: Sinus rhythm nonspecific T-wave rate 89 HI 152 QRS 92 QT 366 axis -30 Critical Care Time Critical Care Time: No
[2019-03-12 20:36] LABS: Basophils # 0.1 K/mcL (0.0-0.2); Basophils % 0.5 %; Eosinophils # 0.1 K/mcL (0.0-0.6); Eosinophils % 0.6 %; Hematocrit 41.3 % (35.3-44.9); Hemoglobin 13.7 g/dL (11.5-15.4); Immature Granulocytes % 0.3 % (0-4); Lymphocytes # 2.6 K/mcL (0.6-4.6); Lymphocytes % 25.3 %; Mean Corpuscular HGB Conc 33.2 g/dL (31.6-35.5); Mean Corpuscular Hemoglobin 31.6 pg (28.0-33.3); Mean Corpuscular Volume 95.2 fL (83.0-100.0); Mean Platelet Volume 10.6 fL (9.4-12.4); Monocytes # 0.8 K/mcL (0.0-1.3); Neutrophils # 6.6 K/mcL (1.6-8.9); Platelet Count 226 K/mcL (140-400); Red Blood Count 4.34 M/mcL (3.82-4.97); Red Cell Distribution Width 12.3 % (11.5-14.5); Segmented Neutrophils % 65.3 %; White Blood Count 10.2 K/mcL (4.3-11.1)
[2019-03-12] MEDS ORDERED: ceFAZolin 2,000 MG in Water for inj. (sterile) 20 ML IVP STA ×2 (20:42→23:16)
[2019-03-12 20:43] LABS: Bilirubin,Urine Negative (Negative); Blood,Urine Negative (Negative); Clarity,Urine Cloudy (Clear); Color,Urine Yellow (Yellow); Glucose,Urine (UA) Normal (Normal); Ketones,Urine Negative (Negative); Leukocyte Esterase,Urine Trace (Negative); Nitrite,Urine Negative (Negative); Protein,Urine Negative (Neg-Trace); Specific Gravity,Urine 1.025 (1.010-1.025); Urobilinogen,Urine Normal (Normal)
[2019-03-12 20:48] LABS: Prothrombin Time 10.9 Seconds (9.4-12.1)
[2019-03-12 20:51] LABS: Activated Partial Thrombo Time 30.4 Seconds (26.0-36.0)
[2019-03-12 20:56] LABS: Squamous Epithelial Cell,Urine Moderate per lpf (None-Few)
[2019-03-12 20:57] LABS: Bacteria,Urine Moderate per hpf (None-Few); Calcium Oxalate Crystals,Urine Present; Mucus,Urine Many (Few); Yeast,Urine Many per hpf (None Seen)
[2019-03-12 20:59] LABS: RBC,Urine 0-3 per hpf (0-3)
[2019-03-12 20:59] LABS: Troponin I < 0.03 ng/mL (< 0.04)
[2019-03-12 21:00] LABS: Alanine Aminotransferase 23 Units/L (7-52); Albumin/Globulin Ratio 1.9 (1.1-2.2); Alkaline Phosphatase 45 Units/L (34-104); Aspartate Amino Transferase 16 Units/L (13-39); BUN/Creatinine Ratio 35 (6-26); Bilirubin,Total 0.3 mg/dL (0.3-1.0); Blood Urea Nitrogen 25 mg/dL (8-23); Calcium 9.2 mg/dL (8.6-10.3); Carbon Dioxide 30 mEq/L (23-29); Chloride 99 mEq/L (98-107); Globulin 2.1 g/dL (2.4-3.5); Glucose 177 mg/dL (70-105); Osmolality,Calculated 293 (280-300); Potassium 3.2 mEq/L (3.5-5.1); Sodium 137 mEq/L (136-145); Total Protein 6.1 g/dL (6.4-8.9); eGFR For African Americans > 60 (> 60); eGFR For Non-African Americans > 60 (> 60)
[2019-03-12 21:00] LABS: Hyaline Casts,Urine Few per lpf (None-Few)
[2019-03-12] MEDS ORDERED: Ondansetron ODT 4 MG TAB.RAPDIS SL ONE (21:00)
[2019-03-12] MEDS ORDERED: Orphenadrine 60 MG/2 ML VIAL IM ONE (21:00)
[2019-03-12] MEDS ORDERED: *HR* Nalbuphine 10 MG/ML AMPUL IV STA (21:00)
[2019-03-12] MEDS ORDERED: *HR* Nalbuphine 10 MG/ML AMPUL IV PRN (23:16)
[2019-03-12] MEDS ORDERED: *HR* Dextrose 50 % in Water (Syg) 50 ML SYRINGE IVP PRN (23:16)
[2019-03-12] MEDS ORDERED: Ondansetron 4 MG/2 ML VIAL IVP ONE (23:16)
[2019-03-12] MEDS ORDERED: D5% in Water 1,000 ML IVC PRN (23:16)
[2019-03-12] MEDS ORDERED: Dextrose Gel 15 GM/37.5 ML TUBE PO PRN ×2 (23:16)
[2019-03-12] MEDS ORDERED: Naloxone 0.4 MG/ML INJ IVP PRN (23:16)
[2019-03-12] MEDS ORDERED: Ondansetron 4 MG/2 ML VIAL IVP PRN (23:16)
[2019-03-12] MEDS: 0.9 % Sodium Chloride 1,000 ML IVC SCH (23:30)
[2019-03-13] MEDS ORDERED: Ondansetron ODT 4 MG TAB.RAPDIS SL PRN
[2019-03-13] MEDS ORDERED: *HR* HYDROcodone/Acet 5/325 mg TABLET PO PRN (03:12)
[2019-03-13] MEDS ORDERED: Ibuprofen 600 MG TABLET PO PRN (03:13)
[2019-03-13] MEDS ORDERED: Orphenadrine 60 MG/2 ML VIAL IM PRN (03:15)
[2019-03-13] MEDS ORDERED: Orphenadrine 60 MG/2 ML VIAL IM SCH (06:00)
[2019-03-13] MEDS ORDERED: Levothyroxine 25 MCG TABLET PO SCH (06:30)
[2019-03-13] MEDS: 0.9 % Sodium Chloride 1,000 ML IVC SCH (07:34)
[2019-03-13] MEDS: Insulin LISPRO 300 UNITS/3 ML VIAL SQ SCH ×3 (08:57→17:03)
[2019-03-13] MEDS: *HR* Metformin 500 MG TABLET PO SCH ×2 (08:59→17:02)
[2019-03-13] MEDS ORDERED: Gabapentin 300 MG CAPSULE PO SCH (09:00)
[2019-03-13] MEDS ORDERED: sulfaSALAzine 500 MG TABLET PO SCH (09:00)
[2019-03-13] MEDS ORDERED: Linaclotide [Linzess] 145 MCG PO SCH (09:00)
[2019-03-13] MEDS ORDERED: Mirabegron [Myrbetriq] 25 MG PO SCH (09:00)
[2019-03-13] MEDS: Pentosan Polysulfate Sodium [Elmiron] 100 MG PO SCH ×2 (09:00→17:00)
[2019-03-13 15:07] VITALS: BP 107/61
[2019-03-13] MEDS ORDERED: CefTRIAXone 1,000 MG VIAL IM ONE (16:07)
[2019-03-13] MEDS ORDERED: cefTRIAXone 1,000 MG in Water for inj. (sterile) 10 ML IVPB ONE (17:00)
--- NOTE | 2019-03-13 17:07 | Internal Med History&Physical ---
Date of Encounter: 03/13/19 Time of Encounter: 16:26 Assessment and Plan (1) Syncope due to orthostatic hypotension Current visit: Yes Status: Acute She is asymptomatic with hydration. Fumes probably had a part of the syncope she should use also outside her ventilated area discussed with primary care provider about an echocardiogram and carotid Dopplers (2) UTI (urinary tract infection) Current visit: Yes Status: Acute Give another dose of Rocephin follow-up with medical records about the culture Qualifiers: Urinary tract infection type: site unspecified Hematuria presence: without hematuria Qualified Code(s): N39.0 - Urinary tract infection, site not specified (3) Fibromyalgia Current visit: No Status: Chronic Continue her Neurontin will give her prednisone course for her trip (4) T2DM (type 2 diabetes mellitus) Current visit: No Status: Chronic Into proper diet mitral higher with the prednisone continue metformin Qualifiers: Diabetes mellitus half-way insulin use: with termite treater helper use Diabetes avni itus complication status: without complication Qualified Code(s): E11.9 - Type 2 diabetes mellitus without complications; 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 (5) Recurrent UTI Current visit: Yes Status: Chronic Developed prescription for Keflex 250 mg daily for 30 days (6) Interstitial cystitis Current visit: Yes Status: Acute (7) Hypothyroidism Current visit: No Status: Chronic Continue Synthroid Qualifiers: Hypothyroidism type: unspecified Qualified Code(s): E03.9 - Hypothyroidism, unspecified (8) Rheumatoid arthritis Current visit: No Status: Chronic We will give her a course of penicillin for trip Qualifiers: Rheumatoid arthritis location: multiple sites Rheumatoid factor presence: unspecified presence Qualified Code(s): M06.9 - Rheumatoid arthritis, unspecified Internal Medicine - H&P: HPI Chief complaint: Passsed out Admitted From: Home Plans for Post Hospital Care: Home History of present illness: Ms. Pimentel is a 63 year old female presents emergency room after stepping up on the chair feeling dizzy, felt like she was falling. She woke up about 2 feet away from the chair realizes that she passed out. she had neck pelvic and knee pain is about 3 or 4 out of 10. She had right knee abrasion. She is on [place] at home and Neurontin for pain. She was admitted to Dr. Cheng was syncope sec ondary to orthostatic hypotension and UTI. She told me that she fell normal until she stepped up onto the chair to turn off the air-conditioner. She is wondering if spraying paint onto a tumbler using a ceiling in the hip and epoxy inside without ventilation could have contributed. I believe it did. Has been can later be summarized which been going on and answered his questions addition the first her concerns. She denies any chest pain shortness breath nausea vomiting diarrhea. She felt back to normal would like to go home tonight. She would like prophylactic antibiotics she apparently was discharged from the [place] before and put on antibiotic. The nurse was able to help me find that that was Keflex prophylactically and she has been put on Omnicef for the treatment. She would like a prescription for Keflex. She is going to go to urologist down in [place] about 10 days from now. She also would like a Medrol Dosepak or a course of prednisone because they will taking a trip to [place] and her fibromyalgia and rheumatoid arthritis always acts up the trips. She also like a dose of Rocephin before she weighs her white count was normal potassium is a little low her UA showed moderate bacteria and moderate squamous cell WBCs 5 to 6:15 many mucus many yeast. He can call medical records about 48 hours from when is ordered to get the results. Rocephin should knock it down. Por[place] pain was a 7.5-8 out of 10 last night that responded when we ordered her home Hillman. She went to [facility] gave her medicine for her rheumatoid arthritis but she can only take it when she does not have an infection so she really have not been known to take it. Medicine costs about $5000 a month. She has weakness on her right lower extremity she has had a coincided with the time that she felt like she might be having a TIA and she says residual it sounds like it is a CVA. If she has not had an echocardiogram her chronic Doppler studies are recommended she gets order from her primary care provider. Questions answered concerns addressed Past Med Surg Social Fam HX - Past Medical History Medical history: asthma, diabetes, fibromyalgia, hyperlipidemia, hypertension, RA, thyroid disease, other (Interstitial cystitis, right lower extremity weakness) Additional medical history: recurrent UTI's Psychiatric history: anxiety, depression - Past Surgical History Surgical History: cholecystectomy, hysterectomy Additional surgical history: bilateral CTR. Foot surgery - Social History Smoking Status: Never smoker Smokeless Tobacco Status: No Alcohol use: none Drug use: none - Family History Father Living Status: (CHF, COPD, stroke) Mother Living Status: (Alcoholism, stroke) Internal Medicine - H&P: Meds Gabapentin [Neurontin] 600 mg PO BID 03/22/15 [History] rOPINIRole [Requip] 2 mg PO HS 03/22/15 [History] Lisinopril/Hydrochlorothiazide [Zestoretic 20-25 mg Tablet] 1 tab PO DAILY 07/20/17 [History] DULoxetine [Cymbalta] 30 mg PO HS 03/27/18 [History] DULoxetine [Cymbalta] 60 mg PO DAILY 03/27/18 [History] Pentosan Polysulfate Sodium [Elmiron] 100 mg PO TID 03/28/18 [History] Levothyroxine [Synthroid] 25 mcg PO 0630 05/03/18 [History] Mirabegron [Myrbetriq] 25 mg PO DAILY 05/03/18 [History] Rosuvastatin Calcium [Crestor] 10 mg PO DAILY 05/03/18 [History] Phenazopyridine HCl [Pyridium] 200 mg PO TIDAC #6 tab 10/19/18 [Rx] Ondansetron ODT [Zofran ODT] 4 mg SL Q6HR #10 tab.rapdis 10/26/18 [Rx] Linaclotide [Linzess] 145 mcg PO DAILY 01/26/19 [History] Metformin HCl [Glucophage] 1,000 mg PO BID 01/26/19 [History] Sulfasalazine [Azulfidine] 500 mg PO BID 01/26/19 [History] Allergy/AdvReac Type Severity Reaction Status Date / Time Hydroxychloroquine AdvReac Hives Verified 03/12/19 19:23 [From Plaquenil] All Systems PM: A 10-system review of systems was performed and is negative for pertinent findings except as documented above in the HPI. - Constitutional Vitals: Temp Pulse Resp BP Pulse Ox 98.6 F 81 16 107/61 95 03/13/19 15:00 03/13/19 15:00 03/13/19 15:00 03/13/19 15:00 03/13/19 15:00 - Head Head exam: Present: atraumatic, normocephalic - Eye Eye exam: Present: PERRL, conjuntiva pink, sclera anicteric Pupils: Present: PERRL - Neck Neck exam general surgery: Present: supple, trachea midline. Absent: lymphadenopathy - Respiratory Respiratory exam: Present: CTAB. Absent: accessory muscle use, rales, rhonchi, wheezes - Cardiovascular Cardiovascular exam: Present: RRR, +S1, +S2. Absent: diastolic murmur, gallop, rubs, systolic murmur - GI/Abdominal GI/Abdominal exam: Present: normal bowel sounds, soft, no peritoneal signs. Absent: distended, tenderness - Extremities Exam Extremities exam: Present: warm. Absent: calf tenderness, cyanotic, pedal edema - Neurological Exam Neurological exam: Present: CN II-XII intact, oriented X3. Absent: pronater drift, facial droop, speech deficit Additional comments: Right lower extremity slightly weaker than left - Skin Skin exam: Present: dry, intact Additional comments: Abrasion on the right knee no pus or spreading redness Internal Med - H&P Results - Labs CBC & Chem 7: 03/12/19 20:25 03/12/19 20:25 Labs: Short CBC 03/12/19 Range/Units 20:25 WBC 10.2 (4.3-11.1) K/mcL Hgb 13.7 (11.5-15.4) g/dL Hct 41.3 (35.3-44.9) % Plt Count 226 (140-400) K/mcL Neutrophils # 6.6 (1.6-8.9) K/mcL BMP 03/12/19 20:25 Sodium 137 Potassium 3.2 L Chloride 99 Carbon Dioxide 30 H BUN 25 H Creatinine 0.71 Glucose 177 H Calcium 9.2 Cardiac Enzymes 03/12/19 03/13/19 03/13/19 Range/Units 20:25 01:18 06:28 Troponin I < 0.03 < 0.03 < 0.03 (< 0.04) ng/mL Liver Function 03/12/19 Range/Units 20:25 Total Bilirubin 0.3 (0.3-1.0) mg/dL AST 16 (13-39) Units/L ALT 23 (7-52) Units/L Alkaline Phosphatase 45 (34-104) Units/L Albumin 4.0 (3.5-5.7) g/dL Urine 03/12/19 Range/Units 20:38 Urine Color Yellow (Yellow) Urine Clarity Cloudy A (Clear) Urine pH 6.0 (5.0-8.0) pH Units Ur Specific [place] 1.025 (1.010-1.025) Urine Protein Negative (Neg-Trace) mg/dL Urine Glucose (UA) Normal (Normal) mg/dL - Impressions ITS Impressions Cervical Spine CT 03/12/19 20:08 IMPRESSION: No acute abnormality of the cervical spine. D/ / Gennaro Eisenberg MD / Gennaro Eisenberg MD Interpreting Provider: Gennaro Eisenberg MD Chest X-Ray 03/12/19 20:08 IMPRESSION: No acute process. D/ / Martinez Pimentel MD / Martinez Pimentel MD Interpreting Provider: Martinez Pimentel MD Head CT 03/12/19 20:08 IMPRESSION: No acute intracranial abnormality. D/ / Gennaro Eisenberg MD / Gennaro Eisenberg MD Interpreting Provider: Gennaro Eisenberg MD Knee X-Ray 03/12/19 20:08 IMPRESSION: No significant finding in the right knee. D/ / Gennaro Eisenberg MD / Gennaro Eisenberg MD Interpreting Provider: Gennaro Eisenberg MD Pelvis CT 03/12/19 20:08 IMPRESSION: No acute finding in the pelvis. D/ / Gennaro Eisenberg MD / Gennaro Eisenberg MD Interpreting Provider: Gennaro Eisenberg MD
--- NOTE | 2019-03-13 17:25 | Discharge Summary ---
- NOTES TO OUTPATIENT PROVIDER Notes to Outpatient Provider: Recommend outpatient carotid Dopplers and echocardiogram because of right lower extremity weakness and which described as a previous CVA versus TIA Orders not resulted at time of discharge: Pending orders 03/12/19 20:38 Culture,Urine [RM] Stat Date of Encounter: 03/13/19 Time of Encounter: 17:22 - Discharge Diagnosis (1) Syncope due to orthostatic hypotension Priority: Primary Status: Acute Comments: Symptomatically better (2) UTI (urinary tract infection) Priority: Primary Status: Acute Comments: 2 dose of Rocephin output records the culture results Qualifiers: Urinary tract infection type: site unspecified Hematuria presence: without hematuria Qualified Code(s): N39.0 - Urinary tract infection, site not specified (3) Fibromyalgia Priority: Secondary Status: Chronic Comments: Prednisone prescription for her trip to [place] (4) T2DM (type 2 diabetes mellitus) Priority: Secondary Status: Chronic Comments: Continue proper diet medicines Qualifiers: 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 Diabetes mellitus complication status: without complication Qualified Code(s): E11.9 - Type 2 diabetes mellitus without complications; 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 (5) Recurrent UTI Priority: Secondary Status: Chronic Comments: Prophylactic Keflex (6) Interstitial cystitis Priority: Secondary Status: Chronic Comments: Continue pain medicine availability follow-up with specialist (7) Hypothyroidism Priority: Secondary Status: Chronic Comments: Continue Synthroid Qualifiers: Hypothyroidism type: unspecified Qualified Code(s): E03.9 - Hypothyroidism, unspecified (8) Rheumatoid arthritis Priority: Secondary Status: Chronic Comments: Prednisone for flare of Qualifiers: Rheumatoid arthritis location: multiple sites Rheumatoid factor presence: unspecified presence Qualified Code(s): M06.9 - Rheumatoid arthritis, unspecified Hospital course: Ms. Pimentel is a 63 year old female admitted for syncope secondary to orthostatic hypotension contributing UTI and inhaling fumes. She felt slightly better after IV fluids, IV Rocephin. She felt back to normal and wanted to be discharged. She will follow-up with her primary care provider and also with a urologist down in [place] for second opinion. Questions answered concerns add ressed denied any chest pain or shortness breath before discharge Discharge discussed with: patient, family - Time Spent with Patient Total time spent providing and/or coordinating discharge services: Time spent: Less than 30 minutes, Greater than 30 minutes, D/C greater than 8 hours after Admission Specific discharge activities: Diabetic diet and activity as tolerated - Discharge Medications Prescriptions: New Cephalexin [Keflex] 250 mg PO DAILY 30 Days #30 capsule predniSONE [PredniSONE] 20 mg PO DAILY 7 Days #7 tablet Continued rOPINIRole [Requip] 2 mg PO HS Gabapentin [Neurontin] 600 mg PO BID Lisinopril/Hydrochlorothiazide [Zestoretic 20-25 mg Tablet] 1 tab PO DAILY DULoxetine [Cymbalta] 60 mg PO DAILY DULoxetine [Cymbalta] 30 mg PO HS Pentosan Polysulfate Sodium [Elmiron] 100 mg PO TID Levothyroxine [Synthroid] 25 mcg PO 0630 Mirabegron [Myrbetriq] 25 mg PO DAILY Rosuvastatin Calcium [Crestor] 10 mg PO DAILY Phenazopyridine HCl [Pyridium] 200 mg PO TIDAC #6 tab Metformin HCl [Glucophage] 1,000 mg PO BID Linaclotide [Linzess] 145 mcg PO DAILY Sulfasalazine [Azulfidine] 500 mg PO BID Ondansetron ODT [Zofran ODT] 4 mg SL Q6HR #[address] [facility] Medications: Gabapentin [Neurontin] 600 mg PO BID 03/22/15 [History] rOPINIRole [Requip] 2 mg PO HS 03/22/15 [History] Lisinopril/Hydrochlorothiazide [Zestoretic 20-25 mg Tablet] 1 tab PO DAILY 07/20/17 [History] DULoxetine [Cymbalta] 30 mg PO HS 03/27/18 [History] DULoxetine [Cymbalta] 60 mg PO DAILY 03/27/18 [History] Pentosan Polysulfate Sodium [Elmiron] 100 mg PO TID 03/28/18 [History] Levothyroxine [Synthroid] 25 mcg PO 0630 05/03/18 [History] Mirabegron [Myrbetriq] 25 mg PO DAILY 05/03/18 [History] Rosuvastatin Calcium [Crestor] 10 mg PO DAILY 05/03/18 [History] Phenazopyridine HCl [Pyridium] 200 mg PO TIDAC #6 tab 10/19/18 [Rx] Ondansetron ODT [Zofran ODT] 4 mg SL Q6HR #10 tab.rapdis 10/26/18 [Rx] Linaclotide [Linzess] 145 mcg PO DAILY 01/26/19 [History] Metformin HCl [Glucophage] 1,000 mg PO BID 01/26/19 [History] Sulfasalazine [Azulfidine] 500 mg PO BID 01/26/19 [History] Cephalexin [Keflex] 250 mg PO DAILY 30 Days #30 capsule 03/13/19 [Rx] predniSONE [PredniSONE] 20 mg PO DAILY 7 Days #7 tablet 03/13/19 [Rx] Allergies/Adverse Reactions: Allergy/AdvReac Type Severity Reaction Status Date / Time Hydroxychloroquine AdvReac Hives Verified 03/12/19 19:23 [From Plaquenil] Date of admission: 03/12/19 22:49 Primary care physician: Brian Stratton DO Discharging clinician: Puneet Emerson Anticipated date of discharge: 03/13/19 - Constitutional Vitals: Temp Pulse Resp BP Pulse Ox 98.6 F 81 16 107/61 95 03/13/19 15:00 03/13/19 15:00 03/13/19 15:00 03/13/19 15:00 03/13/19 15:00 Exam: General: Alert and oriented, no acute distress Lungs: Clear to auscultation bilaterally without wheezing or crackles Heart: Regular rate and rythms without murmer or rubs Abdomen: Soft, nontender, Extremities: no edema, redness but abrasion to the right knee with weakness on the right leg compared to left - Patient Status Disposition: Home, Self-Care Condition: Good Functional capacity at discharge: independent ambulation Overall status at discharge: patient is back to baseline - Discharge Instructions Follow Up With: Brian Stratton DO [Primary Care Provider] - 1 week - Diet and Activity Activity: resume usual activities as tolerated Diet: diabetic diet
[2019-03-13] MEDS ORDERED: rOPINIRole 1 MG TABLET PO SCH (21:00)
--- NOTE | 2019-03-14 13:43 | Electrocardiograph Report ---
[place] [id number] Test Date: 2019-03-12 Pat Name: Zunilda Pimentel Department: EDP-14 Room: [facility] Gender: F [employer]: : [id number] Requested By: Ro Howell Order Number: [id number] Reading MD: Martinez Malloy Measurements Intervals [place] Rate: 89 P: 66 CT: 152 QRS: -30 QRSD: 92 T: 75 QT: 366 QTc: 446 Interpretive Statements Sinus rhythm Left axis deviation Low voltage, precordial leads Borderline T abnormalities, anterior leads Electronically Signed On 03-14-2019 13:41:49 EDT by Martinez Malloy
== END 2019-03-13 18:17 | disposition home or self-care (01) ==
LOC: EMEROOPIK 19:19 → INPPIK 19:19
PROVIDERS: ADMIT Family Medicine; ATTEND Family Medicine

== ENCOUNTER 2021-01-25 17:35 | Observation (INO) ==
[2021-01-25 18:27] LABS: Basophils % 0.6 %; Eosinophils # 0.1 K/mcL (0.0-0.6); Hematocrit 44.8 % (35.3-44.9); Hemoglobin 15.2 g/dL (11.5-15.4); Immature Granulocytes % 0.4 % (0-4); Lymphocytes # 1.9 K/mcL (0.6-4.6); Mean Corpuscular HGB Conc 33.9 g/dL (31.6-35.5); Mean Corpuscular Hemoglobin 31.5 pg (28.0-33.3); Mean Corpuscular Volume 92.9 fL (83.0-100.0); Mean Platelet Volume 10.5 fL (9.4-12.4); Monocytes # 0.5 K/mcL (0.0-1.3); Monocytes % 7.6 %; Neutrophils # 4.2 K/mcL (1.6-8.9); Platelet Count 297 K/mcL (140-400); Red Blood Count 4.82 M/mcL (3.82-4.97); Red Cell Distribution Width 12.7 % (11.5-14.5); Segmented Neutrophils % 61.4 %; White Blood Count 6.9 K/mcL (4.3-11.1)
[2021-01-25 18:47] LABS: Alanine Aminotransferase 25 Units/L (7-52); Albumin 4.2 g/dL (3.5-5.7); Albumin/Globulin Ratio 1.8 (1.1-2.2); Alkaline Phosphatase 44 Units/L (34-104); Aspartate Amino Transferase 20 Units/L (13-39); BUN/Creatinine Ratio 26 (6-26); Bilirubin,Total 0.3 mg/dL (0.3-1.0); Blood Urea Nitrogen 27 mg/dL (8-23); Calcium 9.1 mg/dL (8.6-10.3); Carbon Dioxide 26 mEq/L (23-29); Chloride 100 mEq/L (98-107); Globulin 2.3 g/dL (2.4-3.5); Glucose 241 mg/dL (70-105); Lipase 353 Units/L (11-82); Osmolality,Calculated 297 (280-300); Potassium 3.6 mEq/L (3.5-5.1); Sodium 137 mEq/L (136-145); Total Protein 6.5 g/dL (6.4-8.9); eGFR For African Americans > 60 (> 60); eGFR For Non-African Americans 52 (> 60)
[2021-01-25] MEDS ORDERED: Ondansetron 4 MG/2 ML VIAL IVP ONE ×3 (19:01→20:08)
[2021-01-25] MEDS: 0.9 % Sodium Chloride 1,000 ML IVC SCH ×4 (19:21→22:39)
[2021-01-25] MEDS ORDERED: Morphine Sulfate 2 MG/ML SYRINGE IVP ONE ×2 (19:29→20:08)
[2021-01-25 19:59] LABS: Bilirubin,Urine Negative (Negative); Blood,Urine Negative (Negative); Clarity,Urine Clear (Clear); Color,Urine Yellow (Yellow); Glucose,Urine (UA) Normal (Normal); Ketones,Urine Negative (Negative); Leukocyte Esterase,Urine Negative (Negative); Nitrite,Urine Negative (Negative); Protein,Urine Negative (Neg-Trace); Urobilinogen,Urine Normal (Normal)
[2021-01-25] MEDS ORDERED: Naloxone 0.4 MG/ML INJ IVP PRN (20:08)
[2021-01-25] MEDS ORDERED: 0.9 % Sodium Chloride 1,000 ML IVC SCH ×2 (20:08)
[2021-01-25] MEDS ORDERED: *HR* Metformin 500 MG TABLET PO SCH (21:00)
[2021-01-25] MEDS: rOPINIRole 1 MG TABLET PO SCH (21:14)
[2021-01-25] MEDS: CYCLOSPORINE 0.05% OP SCH (21:16)
[2021-01-25] MEDS: amLODIPine 5 MG TABLET PO SCH (21:21)
[2021-01-25] MEDS: Morphine Sulfate 2 MG/ML SYRINGE IVP PRN (22:42)
[2021-01-26] MEDS: 0.9 % Sodium Chloride 1,000 ML IVC SCH (02:47)
[2021-01-26] MEDS: Morphine Sulfate 2 MG/ML SYRINGE IVP PRN ×2 (02:48→06:51)
[2021-01-26] MEDS ORDERED: *HR* Promethazine 25 MG/ML VIAL IM PRN (02:56)
[2021-01-26] MEDS: Ondansetron 4 MG/2 ML VIAL IVP PRN ×2 (03:45→16:11)
[2021-01-26 05:05] LABS: Basophils % 0.6 %; Eosinophils # 0.2 K/mcL (0.0-0.6); Eosinophils % 2.2 %; Hematocrit 38.3 % (35.3-44.9); Hemoglobin 12.5 g/dL (11.5-15.4); Immature Granulocytes % 0.3 % (0-4); Lymphocytes # 1.9 K/mcL (0.6-4.6); Lymphocytes % 25.4 %; Mean Corpuscular HGB Conc 32.6 g/dL (31.6-35.5); Mean Corpuscular Hemoglobin 31.6 pg (28.0-33.3); Mean Corpuscular Volume 96.7 fL (83.0-100.0); Mean Platelet Volume 10.8 fL (9.4-12.4); Monocytes # 0.7 K/mcL (0.0-1.3); Monocytes % 9.9 %; Neutrophils # 4.5 K/mcL (1.6-8.9); Platelet Count 237 K/mcL (140-400); Red Blood Count 3.96 M/mcL (3.82-4.97); Red Cell Distribution Width 12.9 % (11.5-14.5); Segmented Neutrophils % 61.6 %; White Blood Count 7.3 K/mcL (4.3-11.1)
[2021-01-26 05:19] LABS: BUN/Creatinine Ratio 23 (6-26); Blood Urea Nitrogen 19 mg/dL (8-23); Calcium 7.6 mg/dL (8.6-10.3); Carbon Dioxide 31 mEq/L (23-29); Chloride 110 mEq/L (98-107); Glucose 125 mg/dL (70-105); Osmolality,Calculated 302 (280-300); Potassium 4.3 mEq/L (3.5-5.1); Sodium 144 mEq/L (136-145); eGFR For African Americans > 60 (> 60); eGFR For Non-African Americans > 60 (> 60)
[2021-01-26] MEDS: Levothyroxine 25 MCG TABLET PO SCH (06:07)
[2021-01-26] MEDS ORDERED: *HR* Metformin 500 MG TABLET PO SCH (09:00)
[2021-01-26] MEDS: (Linaclotide [Linzess] 145 MCG Capsule) PO SCH (09:49)
[2021-01-26] MEDS: TOFACITINIB CITRATE 5 MG PO SCH (09:49)
[2021-01-26] MEDS: amLODIPine 5 MG TABLET PO SCH (09:50)
[2021-01-26] MEDS: lisinopriL 20 MG TABLET PO SCH (09:50)
[2021-01-26] MEDS: rOPINIRole 1 MG TABLET PO SCH ×2 (09:51→20:56)
[2021-01-26] MEDS: CYCLOSPORINE 0.05% OP SCH ×2 (09:54→20:49)
[2021-01-26] MEDS ORDERED: D5% in Water 1,000 ML IVC PRN (11:32)
[2021-01-26] MEDS ORDERED: *HR* Dextrose 50 % in Water (Vial) 50 ML VIAL IVP PRN (11:32)
[2021-01-26] MEDS ORDERED: Dextrose Gel 15 GM/37.5 ML TUBE PO PRN ×2 (11:32)
[2021-01-26] MEDS: Acetaminophen 325 MG TABLET PO PRN ×2 (14:14→22:31)
[2021-01-26] MEDS: Insulin LISPRO 300 UNITS/3 ML VIAL SUBQ SCH (17:05)
[2021-01-26] MEDS ORDERED: Gabapentin 300 MG CAPSULE PO SCH (18:00)
[2021-01-26] MEDS ORDERED: Insulin LISPRO 300 UNITS/3 ML VIAL SUBQ SCH (21:00)
[2021-01-27] MEDS: Levothyroxine 25 MCG TABLET PO SCH (05:41)
[2021-01-27] MEDS: Insulin LISPRO 300 UNITS/3 ML VIAL SUBQ SCH ×3 (07:09→16:35)
[2021-01-27 08:00] VITALS: BP 150/69
[2021-01-27] MEDS: Acetaminophen 325 MG TABLET PO PRN (08:00)
[2021-01-27] MEDS: lisinopriL 20 MG TABLET PO SCH (08:01)
[2021-01-27] MEDS: amLODIPine 5 MG TABLET PO SCH (08:01)
[2021-01-27] MEDS: rOPINIRole 1 MG TABLET PO SCH (08:01)
[2021-01-27] MEDS: (Linaclotide [Linzess] 145 MCG Capsule) PO SCH (08:03)
[2021-01-27] MEDS: CYCLOSPORINE 0.05% OP SCH (08:04)
[2021-01-27] MEDS: TOFACITINIB CITRATE 5 MG PO SCH (08:06)
[2021-01-27] MEDS: Ondansetron 4 MG/2 ML VIAL IVP PRN (08:19)
[2021-01-27] MEDS ORDERED: Hyoscyamine SL 0.125 MG TAB.SUBL SL PRN (09:14)
[2021-01-27 09:40] LABS: Hematocrit 44.1 % (35.3-44.9); Hemoglobin 14.3 g/dL (11.5-15.4); Mean Corpuscular HGB Conc 32.4 g/dL (31.6-35.5); Mean Corpuscular Volume 95.5 fL (83.0-100.0); Mean Platelet Volume 10.4 fL (9.4-12.4); Platelet Count 259 K/mcL (140-400); Red Blood Count 4.62 M/mcL (3.82-4.97); Red Cell Distribution Width 12.4 % (11.5-14.5); White Blood Count 5.8 K/mcL (4.3-11.1)
[2021-01-27 09:54] LABS: BUN/Creatinine Ratio 16 (6-26); Blood Urea Nitrogen 12 mg/dL (8-23); Calcium 9.1 mg/dL (8.6-10.3); Carbon Dioxide 38 mEq/L (23-29); Chloride 100 mEq/L (98-107); Glucose 152 mg/dL (70-105); Magnesium 2.2 mg/dL (1.6-2.6); Osmolality,Calculated 293 (280-300); Potassium 3.8 mEq/L (3.5-5.1); Sodium 140 mEq/L (136-145); eGFR For African Americans > 60 (> 60); eGFR For Non-African Americans > 60 (> 60)
[2021-01-27] MEDS ORDERED: Simethicone 80 MG TAB.CHEW PO PRN (14:51)
== END 2021-01-27 17:20 | disposition home or self-care (01) ==
LOC: EMEROOPIK 17:35 → INPPIK 17:35
PROVIDERS: ADMIT Family Medicine; ATTEND Family Medicine